=== PATIENT | male | born 1975 | race Caucasian/White ===

== ENCOUNTER 2016-11-17 12:43 | Emergency (ER) | payer OTHER ==
[~2016-11-17 12:43] MED LIST: PLAV75TA PO
[2016-11-17 12:45] VITALS: BP 163/98; PULSE 58; RESP 16; TEMP 98.1; O2SAT 98
[2016-11-17] MEDS ORDERED: SODIUM CHLOR 0.9% 1000 ML INJ 1,000 ML IV SCH (12:47)
[2016-11-17] MEDS ORDERED: CARV3.12 PO (12:52)
[2016-11-17] MEDS ORDERED: ASPI81CH CHEW (12:52)
[2016-11-17] MEDS ORDERED: PLAV75TA29 PO (12:52)
[2016-11-17] MEDS ORDERED: LIPI80TA PO (12:52)
[2016-11-17 12:57] VITALS: O2SAT 100
[2016-11-17] MEDS ORDERED: SODIUM CHLORIDE 0.9% FLUSH 5 ML FLUSH IV FLUSH PRN (13:00)
[2016-11-17 13:07] LABS: AUTOMATED NEUTROPHIL # 2.9 TH/MM3 (1.8-7.7); BASOPHIL # 0.1 TH/MM3 (0-0.2); BASOPHIL % 1.1 % (0.0-2.0); EOSINOPHIL # 0.1 TH/MM3 (0-0.4); EOSINOPHIL % 1.1 % (0.0-4.0); HEMATOCRIT 43.8 % (39.0-51.0); HEMO FLAGS DIFF FINAL; LYMPH % 27.3 % (9.0-44.0); LYMPHOCYTE # 1.4 TH/MM3 (1.0-4.8); MEAN CELL VOLUME 89.3 FL (80.0-100.0); MEAN CORPUSCULAR HEMOGLOBIN 31.1 PG (27.0-34.0); MEAN CORPUSCULAR HGB CONC 34.9 % (32.0-36.0); MONO % 14.3 % (0.0-8.0); NEUT % 56.2 % (16.0-70.0); PLATELET COUNT 207 TH/MM3 (150-450); RED BLOOD COUNT 4.91 MIL/MM3 (4.50-5.90); RED CELL DISTRIBUTION WIDTH 12.7 % (11.6-17.2); WHITE BLOOD COUNT 5.1 TH/MM3 (4.0-11.0)
--- NOTE | 2016-11-17 13:38 | PD ---
HPI Chief Complaint: Altered Mental Status Time Seen by Provider: 12:47 Travel History International Travel<30 days: No Contact w/Intl Traveler<30days: No Traveled to known affect area: No History of Present Illness HPI The patient is a 41-year-old male who presents to the emergency department for altered mental status. 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 The patient appeared somewhat diaphoretic and confused according to coworkers. Upon arrival to the emergency department room echo 54 the patient was diaphoretic, was somewhat confused, but nonfocal on exam. The patient denied any chest pain, shortness breath, nausea, vomiting, or abdominal pain. The patient denied any history of diabetes and immediate bedside Accu-Chek revealed glucose of 115. The patient is unsure if he was exposed to any chemicals during the transport of the other individual who was altered. The patient's symptoms are moderate, occurred during the transport of the patient, and were slowly self resolving upon arrival to the emergency department. PFSH Past Medical History Hx Anticoagulant Therapy: Yes (PLAVIX 75MG PO ) Cardiac Catheterization: Yes Cardiovascular Problems: Yes (STENT X 1) High Cholesterol: Yes Congestive Heart Failure: No Diabetes: No Diminished Hearing: No Past Surgical History Appendectomy: Yes Other Surgery: Yes (DISKECTOMY) Social History Alcohol Use: No Tobacco Use: No Substance Use: No Allergies-Medications (Allergen,Severity, Reaction): Coded Allergies: penicillin G (Unverified Allergy, Mild, UNKNOWN, 10/25/16) Reported Meds & Prescriptions Reported Meds & Active Scripts Active Reported Carvedilol 3.125 Mg Tab 0.5 Tab PO DAILY Aspirin 81 Mg Chew 81 Mg CHEW DAILY Lipitor (Atorvastatin Calcium) 80 Mg Tab 80 Mg PO HS Plavix (Clopidogrel Bisulfate) 75 Mg Tab 75 Mg PO DAILY Review of Systems Except as stated in HPI: all other systems reviewed are Neg General / Constitutional: No: Fever Eyes: No: Blurred Vision, Photophobia HENT: No: Lightheadedness Cardiovascular: Positive: Diaphoresis, No: Chest Pain or Discomfort Respiratory: No: Shortness of Breath Gastrointestinal: Positive: Nausea, No: Vomiting, Abdominal Pain Neurologic: Positive: Change in Mentation, No: Focal Abnormalities, Headache Physical Exam Narrative GENERAL: Awake, alert, pleasant 41-year-old male appears his stated age and is somewhat diaphoretic. SKIN: Focused skin assessment warm and diaphoretic over the forehead. HEAD: Atraumatic. Normocephalic. EYES: Pupils equal and round. Pupils are 4 mm bilateral and reactive. ENT: No nasal bleeding or discharge. Mucous membranes pink and moist. NECK: Trachea midline. No JVD. CARDIOVASCULAR: Regular rate and rhythm. No murmur appreciated. Heart rate in the 60s. RESPIRATORY: No accessory muscle use. Clear to auscultation. Breath sounds equal bilaterally. GASTROINTESTINAL: Abdomen soft, non-tender, nondistended. No rebound tenderness. MUSCULOSKELETAL: No obvious deformities. No clubbing. No cyanosis. No edema. NEUROLOGICAL: Awake and alert. No obvious cranial nerve deficits. Motor grossly within normal limits. Normal speech. The patient was able to tell me the year, after several minutes was able to tell me the month, at first was unable to tell me his date of , however, after 2 minutes was able to tell me his date of . Exam was otherwise nonfocal. PSYCHIATRIC: Slightly confused. Data Data Last Documented VS Vital Signs Date Time Temp Pulse Resp B/P (MAP) Pulse Ox O2 Delivery O2 Flow Rate FiO2 11/17/16 12:57 100 Nasal Cannula 2.00 11/17/16 12:45 98.1 58 16 163/98 (119) Orders Orders Electrocardiogram (11/17/16 12:47) Complete Blood Count With Diff (11/17/16 12:47) Comprehensive Metabolic Panel (11/17/16 12:47) Creatine Kinase (Cpk) (11/17/16 12:47) Troponin I (11/17/16 12:47) Ct Brain W/O Iv Contrast(Rout) (11/17/16 12:47) Blood Glucose (11/17/16 12:47) Ecg Monitoring (11/17/16 12:47) Iv Access Insert/Monitor (11/17/16 12:47) Oximetry (11/17/16 12:47) Sodium Chloride 0.9% Flush (Ns Flush) (11/17/16 13:00) Sodium Chlor 0.9% 1000 Ml Inj (Ns 1000 M (11/17/16 12:47) Labs Laboratory Tests Test 11/17/16 12:55 White Blood Count 5.1 TH/MM3 Red Blood Count 4.91 MIL/MM3 Hemoglobin 15.3 GM/DL Hematocrit 43.8 % Mean Corpuscular Volume 89.3 FL Mean Corpuscular Hemoglobin 31.1 PG Mean Corpuscular Hemoglobin Concent 34.9 % Red Cell Distribution Width 12.7 % Platelet Count 207 TH/MM3 Mean Platelet Volume 7.7 FL Neutrophils (%) (Auto) 56.2 % Lymphocytes (%) (Auto) 27.3 % Monocytes (%) (Auto) 14.3 % Eosinophils (%) (Auto) 1.1 % Basophils (%) (Auto) 1.1 % Neutrophils # (Auto) 2.9 TH/MM3 Lymphocytes # (Auto) 1.4 TH/MM3 Monocytes # (Auto) 0.7 TH/MM3 Eosinophils # (Auto) 0.1 TH/MM3 Basophils # (Auto) 0.1 TH/MM3 CBC Comment DIFF FINAL Differential Comment Blood Urea Nitrogen 22 MG/DL Creatinine 1.13 MG/DL Random Glucose 93 MG/DL Total Protein 7.4 GM/DL Albumin 4.1 GM/DL Calcium Level 8.4 MG/DL Alkaline Phosphatase 74 U/L Aspartate Amino Transf (AST/SGOT) 26 U/L Alanine Aminotransferase (ALT/SGPT) 48 U/L Total Bilirubin 0.6 MG/DL Sodium Level 139 MEQ/L Potassium Level 3.6 MEQ/L Chloride Level 108 MEQ/L Carbon Dioxide Level 25.9 MEQ/L Anion Gap 5 MEQ/L Estimat Glomerular Filtration Rate 71 ML/MIN Total Creatine Kinase 176 U/L Troponin I LESS THAN 0.02 NG/ML MDM Medical Decision Making Medical Screen Exam Complete: Yes Emergency Medical Condition: Yes Medical Record Reviewed: Yes Interpretation(s) EKG revealed sinus bradycardia with a heart rate of 56. Q wave noted in lead 3. Laboratory Tests Test 11/17/16 12:55 White Blood Count 5.1 TH/MM3 Red Blood Count 4.91 MIL/MM3 Hemoglobin 15.3 GM/DL Hematocrit 43.8 % Mean Corpuscular Volume 89.3 FL Mean Corpuscular Hemoglobin 31.1 PG Mean Corpuscular Hemoglobin Concent 34.9 % Red Cell Distribution Width 12.7 % Platelet Count 207 TH/MM3 Mean Platelet Volume 7.7 FL Neutrophils (%) (Auto) 56.2 % Lymphocytes (%) (Auto) 27.3 % Monocytes (%) (Auto) 14.3 % Eosinophils (%) (Auto) 1.1 % Basophils (%) (Auto) 1.1 % Neutrophils # (Auto) 2.9 TH/MM3 Lymphocytes # (Auto) 1.4 TH/MM3 Monocytes # (Auto) 0.7 TH/MM3 Eosinophils # (Auto) 0.1 TH/MM3 Basophils # (Auto) 0.1 TH/MM3 CBC Comment DIFF FINAL Differential Comment Blood Urea Nitrogen 22 MG/DL Creatinine 1.13 MG/DL Random Glucose 93 MG/DL Total Protein 7.4 GM/DL Albumin 4.1 GM/DL Calcium Level 8.4 MG/DL Alkaline Phosphatase 74 U/L Aspartate Amino Transf (AST/SGOT) 26 U/L Alanine Aminotransferase (ALT/SGPT) 48 U/L Total Bilirubin 0.6 MG/DL Sodium Level 139 MEQ/L Potassium Level 3.6 MEQ/L Chloride Level 108 MEQ/L Carbon Dioxide Level 25.9 MEQ/L Anion Gap 5 MEQ/L Estimat Glomerular Filtration Rate 71 ML/MIN Total Creatine Kinase 176 U/L Troponin I LESS THAN 0.02 NG/ML Differential Diagnosis Differential diagnosis includes chemical exposure, adjustment reaction, subdural hemorrhage, intracranial hemorrhage, hyponatremia, transient global amnesia, conversion disorder, delirium. Narrative Course IV was established, labs are drawn and sent, and the patient was placed on cardiac telemetry monitoring and continuous pulse oximetry monitoring. EKG was ordered and interpreted. The patient was administered IV fluids. Bedside Accu- Chek was 115. The patient was administered IV fluids, and monitored in the emergency department. The patient's vitals were stable. Labs are unremarkable including troponin which was less than 0.02. There is no EKG changes noted. Initially I thought about ordering a CT of the brain, however, the patient was reevaluated one hour after arrival and then returned to baseline. The diaphoresis had stopped 2 was asymptomatic, and he was able to answer all questions without difficulty. The patient's is at bedside who does note the patient has returned to baseline. Possible etiologies include vagal episode versus chemical exposure. The patient will be sent home is advised to return if symptoms worsen or progress. Patient agrees and understands. Diagnosis Primary Impression: Altered mental status Qualified Codes: R41.0 - Disorientation, unspecified Additional Instructions: Work excuse for the rest of today. Follow-up with her primary physician. Return if symptoms worsen or progress. Please provide the patient a copy of his lab results at discharge. Disposition: 01 DISCHARGE HOME Condition: Stable Keith Miranda MD Nov 17, 2016 13:38
[2016-11-17 13:39] LABS: ANION GAP 5 MEQ/L (5-15); AST (GOT) 26 U/L (15-37); BICARBONATE 25.9 MEQ/L (21.0-32.0); BLOOD UREA NITROGEN 22 MG/DL (7-18); CHLORIDE 108 MEQ/L (98-107); GLOMERULAR FILTRATION RATE 71 ML/MIN (>89); POTASSIUM 3.6 MEQ/L (3.5-5.1); SODIUM (NA) 139 MEQ/L (136-145)
[2016-11-17 13:43] LABS: ALKALINE PHOSPHATASE 74 U/L (45-117); ALT (GPT) 48 U/L (12-78); CREATINE KINASE 176 U/L (39-308); TOTAL BILIRUBIN ADULT 0.6 MG/DL (0.2-1.0)
--- NOTE | 2016-11-18 11:53 | EKG ---
Date Performed: 11/17/2016 Time Performed: 12:47:28 PTAGE: 41 years EKG: SINUS BRADYCARDIA ST ELEVATION, CONSIDER EARLY REPOLARIZATION ABNORMALITY PREVIOUS TRACING : 04/16/2015 02.33 No significant change from previous tracing noted. DOCTOR: Edilson Clark Interpretating Date/Time 11/18/2016 11:51:39
== END 2016-11-17 14:07 | disposition home or self-care (01) ==
LOC: NEPE 12:43
DX: R41.0 Disorientation, unspecified (principal); R61 Generalized hyperhidrosis; R94.31 Abnormal electrocardiogram [ECG] [EKG]; E78.00 Pure hypercholesterolemia, unspecified; Z79.01 Long term (current) use of anticoagulants; Z86.79 Personal history of other diseases of the circulatory system; X58.XXXA Exposure to other specified factors, initial encounter; Y99.0 Civilian activity done for income or pay
CPT/HCPCS: 80053; 82550; 84484; 85025; 93005; 99285; J7030